=== PATIENT | female | born 1975 | race Caucasian/White ===

== ENCOUNTER → 2020-06-27 15:53 | Outpatient (BNVA) | payer BC, SELFPAY | PROVIDERS: PCP Internal Medicine; Visit Provider Student in an Organized Health Care Education/Training Program ==

== ENCOUNTER → 2021-10-02 10:56 | Outpatient (BNVA) | payer BC, SELFPAY | PROVIDERS: PCP Internal Medicine; Visit Provider Internal Medicine Rheumatology | DX: M79.7 Fibromyalgia (principal) ==

== ENCOUNTER → 2022-05-12 09:42 | Outpatient (BNVA) | payer BC, SELFPAY | PROVIDERS: PCP Internal Medicine; Visit Provider Internal Medicine Rheumatology | DX: M79.7 Fibromyalgia (principal) ==